=== PATIENT | male | born 1945 | race Caucasian/White ===

== ENCOUNTER 2023-05-05 14:22 | Outpatient (CLI) | payer MEDICARE, OTHER ==
--- NOTE | 2023-05-05 15:39 | XRAY Report ---
PROCEDURE: Chest 2 View X-Ray INDICATIONS: MILD PERSISTENT ASTHMA, UNCOMPLICATED TECHNIQUE: 2 views of the chest were acquired. COMPARISON: Chest x-ray 11/10/2015. FINDINGS: Surgical changes and devices: None. Lungs and pleura: No pleural effusions or pneumothorax. Lungs are clear. Mediastinum: Mediastinal contours appear normal. Heart size is normal. Bones and chest wall: No suspicious bony lesions. Degenerative changes of the spine. Overlying soft tissues appear unremarkable. IMPRESSION: No acute cardiopulmonary process. Reviewed by: Con Puentes MD on 05/05/2023 3:38 PM PST Approved by: Con Puentes MD on 05/05/2023 3:38 PM PST Station ID: [id number]
== END 2023-05-05 14:23 | disposition home or self-care (01) ==
LOC: DI.N 14:22
PROVIDERS: ATTEND Internal Medicine
DX: J45.30 Mild persistent asthma, uncomplicated (principal)